=== PATIENT | female | born 1935 | race Caucasian/White ===

== ENCOUNTER 2016-11-15 20:37 | Inpatient (IN) | payer OTHER, MEDICAID ==
[2016-11-15] MEDS ORDERED: TYLENOL 325 MG TAB PO PRN (21:45)
[2016-11-15] MEDS ORDERED: ZOFRAN INJ 4 MG VIAL IVP PRN (21:45)
[2016-11-15] MEDS ORDERED: ULTRAM PO PRN (21:45)
[2016-11-15] MEDS ORDERED: ZOFRAN TAB 4 MG SL PRN (21:45)
[2016-11-15] MEDS ORDERED: MAALOX or MYLANTA PO PRN (21:45)
[2016-11-15] MEDS ORDERED: ROCEPHIN VIAL 1 GM 1 GM in NS 50 ML IV + SPIKE MINIBAG* 50 ML IV SCH (22:00)
[2016-11-15] MEDS: NS 1000 ML 1,000 ML IV SCH (23:05)
[2016-11-15] MEDS: ROCEPHIN VIAL 1 GM 1 GM in NS 50 ML IV + SPIKE MINIBAG* 50 ML IV SCH (23:06)
[2016-11-15 23:12] LABS: ALANINE AMINOTRANSFERASE 17 Units/L (12-78); ALBUMIN 3.4 g/dL (3.4-5.0); ALKALINE PHOSPHATASE 49 Units/L (46-116); ASPARTATE AMINO TRANSFERASE 23 Units/L (15-37); BLOOD UREA NITROGEN 15 mg/dL (7-18); CALCIUM 8.6 mg/dL (8.5-10.1); CARBON DIOXIDE 29.9 mmol/L (21-32); CHLORIDE 102 mmol/L (98-107); CREATININE 1.07 mg/dL (0.55-1.02); GLUCOSE 109 mg/dL (65-99); SODIUM 141 mmol/L (136-145); TOTAL PROTEIN 6.9 g/dL (6.4-8.2); eGFR BLACK RACES > 60 (>60); eGFR NON BLACK RACES 53 (>60)
[2016-11-15] MEDS ORDERED: BUTT CREAM (COMPOUND) TOP PRN (23:30)
[2016-11-16 00:07] LABS: BASOPHILS # (AUTO) 0.1 X10^3/uL (0.0-0.1); BASOPHILS % (AUTO) 0.4 % (0.2-1.0); EOSINOPHILS # (AUTO) 0.1 x10^3/uL (0.0-0.2); EOSINOPHILS % (AUTO) 0.6 % (0.9-2.9); HEMATOCRIT 30.9 % (36.0-47.0); HEMOGLOBIN 10.2 g/dL (12.0-16.0); LYMPHOCYTES # (AUTO) 0.6 X10^3/uL (1.3-2.9); LYMPHOCYTES % (AUTO) 4.6 % (21.0-51.0); MEAN CORPUSCULAR HEMOGLOBIN 39.9 pg (27.0-34.0); MEAN CORPUSCULAR HGB CONC 32.8 g/dL (33.0-35.0); MEAN CORPUSCULAR VOLUME 121.4 fL (80.0-100.0); MEAN PLATELET VOLUME 7.3 fL (7.4-11.0); MONOCYTES # (AUTO) 0.5 x10^3/uL (0.3-0.8); MONOCYTES % (AUTO) 4.3 % (0.0-13.0); NEUTROPHILS # (AUTO) 11.5 x10^3/uL (2.2-4.8); NEUTROPHILS % (AUTO) 90.1 % (42.0-75.0); PLATELET COUNT 241 X10^3/uL (150.0-450.0); RED BLOOD COUNT 2.55 X10^6/uL (3.5-5.4); RED CELL DISTRIBUTION WIDTH 21.3 % (11.6-16.5); WHITE BLOOD COUNT 12.8 X10^3/uL (3.6-10.0)
[2016-11-16 00:17] LABS: ANISOCYTOSIS 1+; BAND NEUTROPHILS % 4 % (0-10); HYPOCHROMASIA 3+; PLATELET MORPHOLOGY COMMENT NORMAL (NORMAL)
[2016-11-16] MEDS: NORCO 5/325 MG TAB PO PRN ×2 (05:24→15:23)
--- NOTE | 2016-11-16 07:15 | RAD ---
HISTORY: Fever, upper respiratory infection Study: Chest one view Comparison: None Findings: Heart size difficult to assess due to obscuration of the right heart border by elevation of the righ t hemidiaphragm. The visualized right lung is clear. The left lung is clear. No pleural effusions ar e identified. The bony thorax is unremarkable. There is calcification on the pleural surface of the right hemidiaphragm suggestive of possible prior asbestos exposure. IMPRESSION: Lungs clear Elevated right hemidiaphragm Calcifications on the pleural surface of the right hemidiaphragm suggestive of possible prior asbest os exposure Reported By:
[2016-11-16] MEDS: ROCEPHIN VIAL 1 GM 1 GM in NS 50 ML IV + SPIKE MINIBAG* 50 ML IV SCH (10:06)
[2016-11-16] MEDS: NS 1000 ML 1,000 ML IV SCH (14:16)
[2016-11-16] MEDS ORDERED: [UNRECOGNIZED DRUG - OTHER] PO PRN (14:40)
[2016-11-16] MEDS ORDERED: [UNRECOGNIZED DRUG - OTHER] PO PRN (14:40)
[2016-11-16] MEDS ORDERED: ZOFRAN TAB 4 MG PO PRN (14:51)
[2016-11-16] MEDS: MOBIC TAB 15 MG PO SCH (15:22)
[2016-11-16] MEDS: PRILOSEC PO SCH ×2 (15:22→20:55)
[2016-11-16] MEDS: FOLIC ACID TAB 1 MG PO SCH (15:22)
[2016-11-16] MEDS: CARAFATE PO SCH ×2 (15:22→20:54)
[2016-11-16] MEDS: PLAVIX PO SCH (15:23)
[2016-11-16] MEDS: ATIVAN TAB 0.5 MG PO SCH ×2 (15:23→20:54)
[2016-11-16] MEDS: CLARITIN PO SCH (15:23)
[2016-11-16 15:28] LABS: BILIRUBIN,URINE NEGATIVE (NEGATIVE); BLOOD/HEMOGLOBIN,URINE NEGATIVE (NEGATIVE); GLUCOSE, URINE NEGATIVE (NEGATIVE); KETONES,URINE NEGATIVE (NEGATIVE); LEUKOCYTE ESTERASE ,URINE NEGATIVE (NEGATIVE); NITRITES,URINE NEGATIVE (NEGATIVE); PROTEIN,URINE NEGATIVE (NEGATIVE); UROBILINOGEN,URINE NORMAL (NORMAL)
[2016-11-16 15:48] LABS: APPEARANCE,URINE CLEAR (CLEAR); BACTERIA,URINE TRACE /HPF (NEGATIVE); COLOR,URINE YELLOW (YELLOW); RBC,URINE 0-2 /HPF (NEGATIVE); SQUAMOUS EPITHELIAL CELL,UR FEW /HPF (NEGATIVE)
[2016-11-16 19:10] VITALS: BMI 33.5
[2016-11-16] MEDS: NEURONTIN CAP 400 MG PO SCH (20:54)
[2016-11-16] MEDS: SINGULAIR TAB 10 MG PO SCH (20:54)
[2016-11-16] MEDS: ZOCOR TAB 10 MG PO SCH (20:55)
[2016-11-16] MEDS: ULTRAM PO PRN (20:56)
--- NOTE | 2016-11-16 22:49 | DR.H&P ---
H&P - History & Physical for Day of: H&P Date: 11/15/16 - Chief Complaint Chief Complaint: Fever and weakness - Allergies Allergies/Adverse Reactions: Allergies Allergy/AdvReac Type Severity Reaction Status Date / Time Promethazine [From Phenergan] Allergy Verified 11/15/16 21:16 Lisinopril AdvReac Verified 11/15/16 21:16 - History of Present Illness History of Present Illness: The patient is a 81yo WF who developed a fever of 101F this afternoon. Patient states she had been feeling bad since Saturday. Denies productive Cough and has had minimal sinus congestion. Denies dysuria. Was recently hospitalized due to TIA like symptoms. - Past Medical History Past Medical History: Anemia, Anxiety, Arthritis, CVA, GERD, Hypertension Additional Medical History: Restless leg syndrome, PVD, DVT, Low back pain with DDD - Past Surgical History Surgical History: Cholecystectomy Additional Surgical History: EGD/Colonoscopy 2014 - Social History Does patient currently use any type of tobacco product: No Have you used tobacco products in the last 12 months: No Type of Tobacco Use: None Does any household member use tobacco: No Alcohol Use: None Drug Use: None - Medications Home Medications: Ciprofloxacin HCl [Cipro] 1 tab PO BID 11/16/16 [History Confirmed 11/16/16] Clopidogrel Bisulfate [Clopidogrel] 1 tab PO DAILY 11/16/16 [History Confirmed 11/16/16] Folic Acid [Folic Acid] 1 tab PO DAILY 11/16/16 [History Confirmed 11/16/16] Gabapentin [Gabapentin] 3 cap PO TID 11/16/16 [History Confirmed 11/16/16] Gabapentin [Gabapentin] 800 mg PO TID 11/16/16 [History Confirmed 11/16/16] Loratadine [Loratadine] 1 tab PO DAILY 11/16/16 [History Confirmed 11/16/16] Lorazepam [Lorazepam] 1 tab PO BID 11/16/16 [History Confirmed 11/16/16] Meloxicam [Meloxicam] 1 tab PO DAILY 11/16/16 [History Confirmed 11/16/16] Montelukast Sodium [SINGULAIR TAB 10 MG *] 1 tab PO HS 11/16/16 [History Confirmed 11/16/16] Omeprazole [Omeprazole] 1 cap PO BID 11/16/16 [History Confirmed 11/16/16] Ondansetron [Zofran Odt] 1 tab PO Q6H PRN 11/16/16 [History Confirmed 11/16/16] Simvastatin [Simvastatin] 1 tab PO HS 11/16/16 [History Confirmed 11/16/16] Sucralfate [Sucralfate] 1 tab PO BID 11/16/16 [History Confirmed 11/16/16] Tramadol-Acetaminophen [Tramadol Hydrochloride/AC 37.5-325 mg] 1 tab PO TID PRN 11/16/16 [History Confirmed 11/16/16] - Review of Systems Constitutional: Fever, Chills, Weakness, Malaise Eyes: No Symptoms Reported ENT: Nose Congestion Respiratory: No Symptoms Reported Cardiovascular: No Symptoms Reported Gastrointestinal: No Symptoms Reported Genitourinary: No Symptoms Reported Musculoskeletal: No Symptoms Reported Skin: No Symptoms Reported Neurological: Weakness - Physical Exam Vital Signs: Temperature 98.1 F Pulse Rate [Left Brachial] 63 Pulse Rate [Brachial] 57 Respiratory Rate 20 Blood Pressure [Left Arm] 140/65 O2 Sat by Pulse Oximetry 94 Oriented: Normal Eyes: Normal Ear: Normal Nose: Normal Throat: Normal Respiratory: Clear Throughout Cardiovascular: Normal : Normal Auscultation: Bowel Sounds: Normal Palpation: Normal Tenderness: Normal Skin: Normal Musculoskeletal: Back:Lumbar, Tender Psychiatric: Normal Mood Description: Calm Affect: Quiet Speech Pattern: Clear - Assessment/Plan (1) Fever Qualifiers: Fever type: F Encounter type: E Status: Acute Plan: Labs, CXR, Blood Culture, Rocephin (2) Generalized weakness Status: Acute Plan: Labs, IVFs (3) Upper respiratory infection, acute Status: Acute Plan: CXR, Rocephin
[2016-11-17] MEDS: NS 1000 ML 1,000 ML IV SCH (05:12)
[2016-11-17 06:20] LABS: BASOPHILS % (AUTO) 0.4 % (0.2-1.0); EOSINOPHILS # (AUTO) 0.2 x10^3/uL (0.0-0.2); EOSINOPHILS % (AUTO) 1.8 % (0.9-2.9); HEMATOCRIT 29.8 % (36.0-47.0); HEMOGLOBIN 10.1 g/dL (12.0-16.0); LYMPHOCYTES # (AUTO) 1.1 X10^3/uL (1.3-2.9); LYMPHOCYTES % (AUTO) 9.1 % (21.0-51.0); MEAN CORPUSCULAR HEMOGLOBIN 40.2 pg (27.0-34.0); MEAN CORPUSCULAR HGB CONC 33.8 g/dL (33.0-35.0); MEAN CORPUSCULAR VOLUME 119.1 fL (80.0-100.0); MEAN PLATELET VOLUME 7.8 fL (7.4-11.0); MONOCYTES # (AUTO) 0.7 x10^3/uL (0.3-0.8); MONOCYTES % (AUTO) 5.6 % (0.0-13.0); NEUTROPHILS # (AUTO) 10.3 x10^3/uL (2.2-4.8); NEUTROPHILS % (AUTO) 83.1 % (42.0-75.0); PLATELET COUNT 207 X10^3/uL (150.0-450.0); RED BLOOD COUNT 2.51 X10^6/uL (3.5-5.4); RED CELL DISTRIBUTION WIDTH 21.3 % (11.6-16.5); WHITE BLOOD COUNT 12.4 X10^3/uL (3.6-10.0)
[2016-11-17 06:31] LABS: BLOOD UREA NITROGEN 11 mg/dL (7-18); CARBON DIOXIDE 31.8 mmol/L (21-32); CHLORIDE 107 mmol/L (98-107); CREATININE 0.82 mg/dL (0.55-1.02); GLUCOSE 86 mg/dL (65-99); SODIUM 144 mmol/L (136-145); eGFR BLACK RACES > 60 (>60); eGFR NON BLACK RACES > 60 (>60)
[2016-11-17 07:19] LABS: ANISOCYTOSIS 1+; PLATELET MORPHOLOGY COMMENT NORMAL (NORMAL)
[2016-11-17] MEDS: CARAFATE PO SCH ×2 (09:21→20:26)
[2016-11-17] MEDS: ATIVAN TAB 0.5 MG PO SCH ×2 (09:21→20:26)
[2016-11-17] MEDS: PRILOSEC PO SCH ×2 (09:22→20:26)
[2016-11-17] MEDS: CLARITIN PO SCH (09:22)
[2016-11-17] MEDS: PLAVIX PO SCH (09:22)
[2016-11-17] MEDS: NEURONTIN CAP 400 MG PO SCH ×2 (09:22→20:27)
[2016-11-17] MEDS: ROCEPHIN VIAL 1 GM 1 GM in NS 50 ML IV + SPIKE MINIBAG* 50 ML IV SCH (09:22)
[2016-11-17] MEDS: FOLIC ACID TAB 1 MG PO SCH (09:22)
[2016-11-17] MEDS: MOBIC TAB 15 MG PO SCH (09:22)
[2016-11-17] MEDS: SINGULAIR TAB 10 MG PO SCH (20:26)
[2016-11-17] MEDS: ZOCOR TAB 10 MG PO SCH (20:27)
[2016-11-18] MEDS: NS 1000 ML 1,000 ML IV SCH ×2 (04:52→15:30)
[2016-11-18 06:48] LABS: BLOOD UREA NITROGEN 10 mg/dL (7-18); CALCIUM 8.1 mg/dL (8.5-10.1); CARBON DIOXIDE 31.3 mmol/L (21-32); CHLORIDE 109 mmol/L (98-107); CREATININE 0.86 mg/dL (0.55-1.02); GLUCOSE 88 mg/dL (65-99); SODIUM 145 mmol/L (136-145); eGFR BLACK RACES > 60 (>60); eGFR NON BLACK RACES > 60 (>60)
[2016-11-18 07:00] LABS: BASOPHILS % (AUTO) 0.5 % (0.2-1.0); EOSINOPHILS # (AUTO) 0.4 x10^3/uL (0.0-0.2); EOSINOPHILS % (AUTO) 4.9 % (0.9-2.9); HEMATOCRIT 30.9 % (36.0-47.0); HEMOGLOBIN 10.5 g/dL (12.0-16.0); LYMPHOCYTES # (AUTO) 1.1 X10^3/uL (1.3-2.9); LYMPHOCYTES % (AUTO) 14.8 % (21.0-51.0); MEAN CORPUSCULAR HEMOGLOBIN 39.9 pg (27.0-34.0); MEAN CORPUSCULAR HGB CONC 33.8 g/dL (33.0-35.0); MEAN CORPUSCULAR VOLUME 118.2 fL (80.0-100.0); MEAN PLATELET VOLUME 7.6 fL (7.4-11.0); MONOCYTES # (AUTO) 0.4 x10^3/uL (0.3-0.8); MONOCYTES % (AUTO) 5.9 % (0.0-13.0); NEUTROPHILS # (AUTO) 5.7 x10^3/uL (2.2-4.8); NEUTROPHILS % (AUTO) 73.9 % (42.0-75.0); PLATELET COUNT 206 X10^3/uL (150.0-450.0); RED BLOOD COUNT 2.62 X10^6/uL (3.5-5.4); RED CELL DISTRIBUTION WIDTH 21.3 % (11.6-16.5); WHITE BLOOD COUNT 7.7 X10^3/uL (3.6-10.0)
[2016-11-18 08:17] LABS: ANISOCYTOSIS 1+; PLATELET MORPHOLOGY COMMENT NORMAL (NORMAL)
[2016-11-18] MEDS: NEURONTIN CAP 400 MG PO SCH ×2 (09:47→20:36)
[2016-11-18] MEDS: ATIVAN TAB 0.5 MG PO SCH ×2 (09:47→20:36)
[2016-11-18] MEDS: CARAFATE PO SCH ×2 (09:47→20:36)
[2016-11-18] MEDS: PRILOSEC PO SCH ×2 (09:47→20:36)
[2016-11-18] MEDS: FOLIC ACID TAB 1 MG PO SCH (09:47)
[2016-11-18] MEDS: MOBIC TAB 15 MG PO SCH (09:47)
[2016-11-18] MEDS: PLAVIX PO SCH (09:47)
[2016-11-18] MEDS: CLARITIN PO SCH (09:54)
[2016-11-18] MEDS: ROCEPHIN VIAL 1 GM 1 GM in NS 50 ML IV + SPIKE MINIBAG* 50 ML IV SCH (15:37)
[2016-11-18] MEDS ORDERED: FLEXERIL TAB 10 MG PO PRN (17:13)
[2016-11-18] MEDS: LEVAQUIN TAB 500 MG PO SCH (17:51)
[2016-11-18] MEDS: SINGULAIR TAB 10 MG PO SCH (20:36)
[2016-11-18] MEDS: ZOCOR TAB 10 MG PO SCH (20:36)
[2016-11-18] MEDS: NORCO 5/325 MG TAB PO PRN (23:17)
[2016-11-19] MEDS: NS 1000 ML 1,000 ML IV SCH (03:39)
[2016-11-19 05:07] LABS: ALANINE AMINOTRANSFERASE 14 Units/L (12-78); ALBUMIN 2.6 g/dL (3.4-5.0); ALKALINE PHOSPHATASE 38 Units/L (46-116); ASPARTATE AMINO TRANSFERASE 16 Units/L (15-37); BLOOD UREA NITROGEN 11 mg/dL (7-18); CALCIUM 8.2 mg/dL (8.5-10.1); CARBON DIOXIDE 32.2 mmol/L (21-32); CHLORIDE 107 mmol/L (98-107); COR CA(FOR HYPOALB) 9.3 mg/dL (8.5-10.1); CREATININE 0.93 mg/dL (0.55-1.02); GLUCOSE 83 mg/dL (65-99); SODIUM 145 mmol/L (136-145); TOTAL PROTEIN 6.1 g/dL (6.4-8.2); eGFR BLACK RACES > 60 (>60); eGFR NON BLACK RACES > 60 (>60)
[2016-11-19 05:11] LABS: BASOPHILS # (AUTO) 0.1 X10^3/uL (0.0-0.1); BASOPHILS % (AUTO) 0.9 % (0.2-1.0); EOSINOPHILS # (AUTO) 0.3 x10^3/uL (0.0-0.2); HEMATOCRIT 29.4 % (36.0-47.0); LYMPHOCYTES # (AUTO) 1.4 X10^3/uL (1.3-2.9); LYMPHOCYTES % (AUTO) 18.6 % (21.0-51.0); MEAN CORPUSCULAR HEMOGLOBIN 39.5 pg (27.0-34.0); MEAN CORPUSCULAR HGB CONC 33.9 g/dL (33.0-35.0); MEAN CORPUSCULAR VOLUME 116.6 fL (80.0-100.0); MEAN PLATELET VOLUME 7.9 fL (7.4-11.0); MONOCYTES # (AUTO) 0.4 x10^3/uL (0.3-0.8); MONOCYTES % (AUTO) 5.6 % (0.0-13.0); NEUTROPHILS # (AUTO) 5.4 x10^3/uL (2.2-4.8); NEUTROPHILS % (AUTO) 70.9 % (42.0-75.0); PLATELET COUNT 225 X10^3/uL (150.0-450.0); RED BLOOD COUNT 2.52 X10^6/uL (3.5-5.4); WHITE BLOOD COUNT 7.6 X10^3/uL (3.6-10.0)
[2016-11-19 05:53] LABS: ANISOCYTOSIS 1+; PLATELET MORPHOLOGY COMMENT NORMAL (NORMAL)
[2016-11-19] MEDS: CLARITIN PO SCH (09:27)
[2016-11-19] MEDS: LEVAQUIN TAB 500 MG PO SCH (09:27)
[2016-11-19] MEDS: ATIVAN TAB 0.5 MG PO SCH ×2 (09:27→20:52)
[2016-11-19] MEDS: MOBIC TAB 15 MG PO SCH (09:27)
[2016-11-19] MEDS: PRILOSEC PO SCH ×2 (09:27→20:53)
[2016-11-19] MEDS: FOLIC ACID TAB 1 MG PO SCH (09:27)
[2016-11-19] MEDS: CARAFATE PO SCH ×2 (09:28→20:53)
[2016-11-19] MEDS: ULTRAM PO PRN (09:28)
[2016-11-19] MEDS: PLAVIX PO SCH (09:28)
[2016-11-19] MEDS: NEURONTIN CAP 400 MG PO SCH ×2 (09:28→20:52)
[2016-11-19] MEDS: ZOCOR TAB 10 MG PO SCH (20:53)
[2016-11-19] MEDS: SINGULAIR TAB 10 MG PO SCH (20:53)
[2016-11-19] MEDS ORDERED: NEURONTIN CAP 400 MG PO SCH (21:00)
[2016-11-20 05:22] LABS: BASOPHILS # (AUTO) 0.1 X10^3/uL (0.0-0.1); BASOPHILS % (AUTO) 0.9 % (0.2-1.0); EOSINOPHILS # (AUTO) 0.3 x10^3/uL (0.0-0.2); EOSINOPHILS % (AUTO) 4.8 % (0.9-2.9); HEMATOCRIT 30.9 % (36.0-47.0); HEMOGLOBIN 10.4 g/dL (12.0-16.0); LYMPHOCYTES # (AUTO) 1.7 X10^3/uL (1.3-2.9); LYMPHOCYTES % (AUTO) 24.1 % (21.0-51.0); MEAN CORPUSCULAR HEMOGLOBIN 38.8 pg (27.0-34.0); MEAN CORPUSCULAR HGB CONC 33.6 g/dL (33.0-35.0); MEAN CORPUSCULAR VOLUME 115.6 fL (80.0-100.0); MEAN PLATELET VOLUME 7.9 fL (7.4-11.0); MONOCYTES # (AUTO) 0.4 x10^3/uL (0.3-0.8); MONOCYTES % (AUTO) 5.6 % (0.0-13.0); NEUTROPHILS # (AUTO) 4.6 x10^3/uL (2.2-4.8); NEUTROPHILS % (AUTO) 64.6 % (42.0-75.0); PLATELET COUNT 230 X10^3/uL (150.0-450.0); RED BLOOD COUNT 2.67 X10^6/uL (3.5-5.4); RED CELL DISTRIBUTION WIDTH 22.4 % (11.6-16.5); WHITE BLOOD COUNT 7.1 X10^3/uL (3.6-10.0)
[2016-11-20 05:33] LABS: ALANINE AMINOTRANSFERASE 13 Units/L (12-78); ALBUMIN 2.7 g/dL (3.4-5.0); ALKALINE PHOSPHATASE 40 Units/L (46-116); ASPARTATE AMINO TRANSFERASE 21 Units/L (15-37); BLOOD UREA NITROGEN 14 mg/dL (7-18); CALCIUM 8.5 mg/dL (8.5-10.1); CARBON DIOXIDE 28.5 mmol/L (21-32); CHLORIDE 108 mmol/L (98-107); COR CA(FOR HYPOALB) 9.5 mg/dL (8.5-10.1); GLUCOSE 76 mg/dL (65-99); SODIUM 144 mmol/L (136-145); TOTAL PROTEIN 6.3 g/dL (6.4-8.2); eGFR BLACK RACES > 60 (>60); eGFR NON BLACK RACES > 60 (>60)
[2016-11-20 06:01] LABS: ANISOCYTOSIS 2+; PLATELET MORPHOLOGY COMMENT NORMAL (NORMAL)
--- NOTE | 2016-11-20 07:06 | RAD ---
HISTORY: Fever, URI Study: Chest one view Comparison: November 15, 2016 Findings: Patient is rotated to the right. Heart size difficult to assess due to obscuration of the right hear t border by and elevated right hemidiaphragm which is chronic. The visualize right lung is clear as is the left lung. No pleural effusions are identified. The bony thorax is unremarkable. IMPRESSION: Lungs clear Chronically elevated right hemidiaphragm Reported By:
[2016-11-20] MEDS: CLARITIN PO SCH (09:48)
[2016-11-20] MEDS: PLAVIX PO SCH (09:48)
[2016-11-20] MEDS: CARAFATE PO SCH ×2 (09:48→21:05)
[2016-11-20] MEDS: NEURONTIN CAP 400 MG PO SCH ×2 (09:48→21:05)
[2016-11-20] MEDS: FOLIC ACID TAB 1 MG PO SCH (09:48)
[2016-11-20] MEDS: MOBIC TAB 15 MG PO SCH (09:48)
[2016-11-20] MEDS: PRILOSEC PO SCH ×2 (09:48→21:05)
[2016-11-20] MEDS: LEVAQUIN TAB 500 MG PO SCH (09:48)
[2016-11-20] MEDS: ATIVAN TAB 0.5 MG PO SCH ×2 (09:48→21:05)
[2016-11-20] MEDS: XOPENEX 1.25 MG/3 ML NEB SCH ×2 (16:24→20:23)
--- NOTE | 2016-11-20 17:22 | PCM.PROG ---
Progress Note - Progress Note for Day of Date: 11/19/16 - Subjective Subjective: CONTINUED MILD GENERALIZED WEAKNESS, CHEST CONGESTION WITH MILDLY PRODUCTIVE COUGH. - Past Medical Family Social History Past Med/Fam/Surg Hx: No changes since H&P Allergies: Allergies Promethazine [From Phenergan] Allergy (Verified 11/15/16 21:16) Lisinopril Adverse Reaction (Verified 11/15/16 21:16) - Review of Systems ROS: No change since H&P - Vital Signs and I&O's Vital Signs: Temperature 98.4 F Pulse Rate [Right Brachial] 85 Pulse Rate [Left Brachial] 100 Pulse Rate [Brachial] 57 Pulse Rate 102 Respiratory Rate 18 Blood Pressure [Right Arm] 110/60 Blood Pressure [Left Arm] 118/68 O2 Sat by Pulse Oximetry 94 Intake and Output: Intake & Output 11/18/16 11/19/16 11/20/16 11/21/16 11:59 11:59 11:59 11:59 Intake Total 8777 159 4587 600 Output Total 600 Balance 0590 442 2202 600 - Physical Exam Oriented: Normal Eyes: Normal Ear: Normal Nose: Normal Throat: Normal Respiratory: Rhonchi (CENTRAL RHONCHI) Cardiovascular: Normal : Normal Auscultation: Bowel Sounds: Normal Tenderness: Normal Skin: Normal Musculoskeletal: Back:Lumbar, Tender Psychiatric: Normal Mood Description: Calm Affect: Quiet Speech Pattern: Clear, Appropriate - Laboratory and Diagnostics Result Diagrams: 11/20/16 03:20 11/20/16 03:20 Labs: 11/15/16 22:25 Blood Blood Culture - Final 11/15/16 23:50 Blood Blood Culture - Final Laboratory WBC 7.1 X10^3/uL (3.6-10.0) 11/20/16 03:20 RBC 2.67 X10^6/uL (3.5-5.4) L 11/20/16 03:20 Hgb 10.4 g/dL (12.0-16.0) L 11/20/16 03:20 Hct 30.9 % (36.0-47.0) L 11/20/16 03:20 MCV 115.6 fL (80.0-100.0) H 11/20/16 03:20 MCH 38.8 pg (27.0-34.0) H 11/20/16 03:20 MCHC 33.6 g/dL (33.0-35.0) 11/20/16 03:20 RDW 22.4 % (11.6-16.5) H 11/20/16 03:20 Plt Count 230 X10^3/uL (150.0-450.0) 11/20/16 03:20 Plt Count Comment Adequate (ADEQUATE) 11/20/16 03:20 MPV 7.9 fL (7.4-11.0) 11/20/16 03:20 Neut % 64.6 % (42.0-75.0) 11/20/16 03:20 Lymph % 24.1 % (21.0-51.0) 11/20/16 03:20 [place] % 5.6 % (0.0-13.0) 11/20/16 03:20 Eos % 4.8 % (0.9-2.9) H 11/20/16 03:20 Baso % 0.9 % (0.2-1.0) 11/20/16 03:20 Neut # 4.6 x10^3/uL (2.2-4.8) 11/20/16 03:20 Lymph # 1.7 X10^3/uL (1.3-2.9) 11/20/16 03:20 [place] # 0.4 x10^3/uL (0.3-0.8) 11/20/16 03:20 Eos # 0.3 x10^3/uL (0.0-0.2) H 11/20/16 03:20 Baso # 0.1 X10^3/uL (0.0-0.1) 11/20/16 03:20 Absolute Nucleated RBC 0.0 /100WBC 11/20/16 03:20 Total Counted 100 11/15/16 22:25 Neutrophils % (Manual) 86 % (39-76) H 11/15/16 22:25 Band Neutrophils % 4 % (0-10) 11/15/16 22:25 Lymphocytes % (Manual) 6 % (13-43) L 11/15/16 22:25 Monocytes % (Manual) 4 % (4-9) 11/15/16 22:25 Plt Morphology Comment Normal (NORMAL) 11/20/16 03:20 RBC Morphology Abnormal (NORMAL) A 11/20/16 03:20 Hypochromasia 3+ A 11/15/16 22:25 Anisocytosis 2+ A 11/20/16 03:20 Macrocytosis 3+ A 11/20/16 03:20 Sodium 144 mmol/L (136-145) 11/20/16 03:20 Corrected Sodium TNP 11/20/16 03:20 Potassium 4.0 mmol/L (3.5-5.1) 11/20/16 03:20 Chloride 108 mmol/L (98-107) H 11/20/16 03:20 Carbon Dioxide 28.5 mmol/L (21-32) 11/20/16 03:20 BUN 14 mg/dL (7-18) 11/20/16 03:20 Creatinine 0.80 mg/dL (0.55-1.02) 11/20/16 03:20 Est GFR (MDRD) Af Amer > 60 (>60) 11/20/16 03:20 Est GFR (MDRD) Non-Af > 60 (>60) 11/20/16 03:20 Glucose 76 mg/dL (65-99) 11/20/16 03:20 Calcium 8.5 mg/dL (8.5-10.1) 11/20/16 03:20 Corrected Calcium 9.5 mg/dL (8.5-10.1) 11/20/16 03:20 Total Bilirubin 0.40 mg/dL (0.2-1.0) 11/20/16 03:20 AST 21 Units/L (15-37) 11/20/16 03:20 ALT 13 Units/L (12-78) 11/20/16 03:20 Alkaline Phosphatase 40 Units/L (46-116) L 11/20/16 03:20 Total Protein 6.3 g/dL (6.4-8.2) L 11/20/16 03:20 Albumin 2.7 g/dL (3.4-5.0) L 11/20/16 03:20 Globulin 3.6 g/dL (2.5-4.5) 11/20/16 03:20 Albumin/Globulin Ratio 0.8 Ratio (1.1-2.1) L 11/20/16 03:20 Specimen Type Clean catch urine 11/16/16 15:05 Urine Color Yellow (YELLOW) 11/16/16 15:05 Urine Appearance Clear (CLEAR) 11/16/16 15:05 Urine pH 7.0 (5.0 - 8.0) 11/16/16 15:05 Ur Specific [place] 1.010 (1.000-1.030) 11/16/16 15:05 Urine Protein Negative (NEGATIVE) 11/16/16 15:05 Urine Glucose (UA) Negative (NEGATIVE) 11/16/16 15:05 Urine Ketones Negative (NEGATIVE) 11/16/16 15:05 Urine Occult Blood Negative (NEGATIVE) 11/16/16 15:05 Urine Nitrite Negative (NEGATIVE) 11/16/16 15:05 Urine Bilirubin Negative (NEGATIVE) 11/16/16 15:05 Urine Urobilinogen Normal (NORMAL) 11/16/16 15:05 Ur Leukocyte Esterase Negative (NEGATIVE) 11/16/16 15:05 Urine RBC 0-2 /HPF (NEGATIVE) 11/16/16 15:05 Urine WBC 0-2 /HPF (NEGATIVE) 11/16/16 15:05 Ur Squamous Epith Cells Few /HPF (NEGATIVE) 11/16/16 15:05 Urine Bacteria Trace /HPF (NEGATIVE) 11/16/16 15:05 Ur Culture Indicated? No/not indicated 11/16/16 15:05 - Plan (1) Acute bronchitis Status: Acute Qualifiers: Bronchitis organism: B Plan: CONTINUE IV ATBX, RESP CONSULT. O2, REST, IV HYDRATION, REPEAT AM LABS (2) Generalized weakness Status: Acute Plan: Labs, IVFs (3) Hypertension Status: Acute Qualifiers: Hypertension type: H Plan: MONITOR (4) GERD (gastroesophageal reflux disease) Status: Acute Qualifiers: Esophagitis presence: E Plan: RESUME HOME MEDS, MONITOR
--- NOTE | 2016-11-20 17:23 | PCM.PROG ---
Progress Note - Progress Note for Day of Date: 11/20/16 - Subjective Subjective: CONTINUED MILD GENERALIZED WEAKNESS, CHEST CONGESTION IMPROVING. WITH MILDLY PRODUCTIVE COUGH. CASE MANAGEMENT CONSULTED FOR PLACEMENT AT [facility] - Past Medical Family Social History Past Med/Fam/Surg Hx: No changes since H&P Allergies: Allergies Promethazine [From Phenergan] Allergy (Verified 11/15/16 21:16) Lisinopril Adverse Reaction (Verified 11/15/16 21:16) - Review of Systems ROS: No change since H&P - Vital Signs and I&O's Vital Signs: Temperature 98.4 F Pulse Rate [Right Brachial] 85 Pulse Rate [Left Brachial] 100 Pulse Rate [Brachial] 57 Pulse Rate 102 Respiratory Rate 18 Blood Pressure [Right Arm] 110/60 Blood Pressure [Left Arm] 118/68 O2 Sat by Pulse Oximetry 94 Intake and Output: Intake & Output 11/18/16 11/19/16 11/20/16 11/21/16 11:59 11:59 11:59 11:59 Intake Total 9041 783 3302 600 Output Total 600 Balance 0189 495 9314 600 - Physical Exam Oriented: Normal Eyes: Normal Ear: Normal Nose: Normal Throat: Normal Respiratory: Rhonchi (CENTRAL RHONCHI) Cardiovascular: Normal : Normal Auscultation: Bowel Sounds: Normal Tenderness: Normal Skin: Normal Musculoskeletal: Back:Lumbar, Tender Psychiatric: Normal Mood Description: Calm Affect: Quiet Speech Pattern: Clear, Appropriate - Laboratory and Diagnostics Result Diagrams: 11/20/16 03:20 11/20/16 03:20 Labs: 11/15/16 22:25 Blood Blood Culture - Final 11/15/16 23:50 Blood Blood Culture - Final Laboratory WBC 7.1 X10^3/uL (3.6-10.0) 11/20/16 03:20 RBC 2.67 X10^6/uL (3.5-5.4) L 11/20/16 03:20 Hgb 10.4 g/dL (12.0-16.0) L 11/20/16 03:20 Hct 30.9 % (36.0-47.0) L 11/20/16 03:20 MCV 115.6 fL (80.0-100.0) H 11/20/16 03:20 MCH 38.8 pg (27.0-34.0) H 11/20/16 03:20 MCHC 33.6 g/dL (33.0-35.0) 11/20/16 03:20 RDW 22.4 % (11.6-16.5) H 11/20/16 03:20 Plt Count 230 X10^3/uL (150.0-450.0) 11/20/16 03:20 Plt Count Comment Adequate (ADEQUATE) 11/20/16 03:20 MPV 7.9 fL (7.4-11.0) 11/20/16 03:20 Neut % 64.6 % (42.0-75.0) 11/20/16 03:20 Lymph % 24.1 % (21.0-51.0) 11/20/16 03:20 [place] % 5.6 % (0.0-13.0) 11/20/16 03:20 Eos % 4.8 % (0.9-2.9) H 11/20/16 03:20 Baso % 0.9 % (0.2-1.0) 11/20/16 03:20 Neut # 4.6 x10^3/uL (2.2-4.8) 11/20/16 03:20 Lymph # 1.7 X10^3/uL (1.3-2.9) 11/20/16 03:20 [place] # 0.4 x10^3/uL (0.3-0.8) 11/20/16 03:20 Eos # 0.3 x10^3/uL (0.0-0.2) H 11/20/16 03:20 Baso # 0.1 X10^3/uL (0.0-0.1) 11/20/16 03:20 Absolute Nucleated RBC 0.0 /100WBC 11/20/16 03:20 Total Counted 100 11/15/16 22:25 Neutrophils % (Manual) 86 % (39-76) H 11/15/16 22:25 Band Neutrophils % 4 % (0-10) 11/15/16 22:25 Lymphocytes % (Manual) 6 % (13-43) L 11/15/16 22:25 Monocytes % (Manual) 4 % (4-9) 11/15/16 22:25 Plt Morphology Comment Normal (NORMAL) 11/20/16 03:20 RBC Morphology Abnormal (NORMAL) A 11/20/16 03:20 Hypochromasia 3+ A 11/15/16 22:25 Anisocytosis 2+ A 11/20/16 03:20 Macrocytosis 3+ A 11/20/16 03:20 Sodium 144 mmol/L (136-145) 11/20/16 03:20 Corrected Sodium TNP 11/20/16 03:20 Potassium 4.0 mmol/L (3.5-5.1) 11/20/16 03:20 Chloride 108 mmol/L (98-107) H 11/20/16 03:20 Carbon Dioxide 28.5 mmol/L (21-32) 11/20/16 03:20 BUN 14 mg/dL (7-18) 11/20/16 03:20 Creatinine 0.80 mg/dL (0.55-1.02) 11/20/16 03:20 Est GFR (MDRD) Af Amer > 60 (>60) 11/20/16 03:20 Est GFR (MDRD) Non-Af > 60 (>60) 11/20/16 03:20 Glucose 76 mg/dL (65-99) 11/20/16 03:20 Calcium 8.5 mg/dL (8.5-10.1) 11/20/16 03:20 Corrected Calcium 9.5 mg/dL (8.5-10.1) 11/20/16 03:20 Total Bilirubin 0.40 mg/dL (0.2-1.0) 11/20/16 03:20 AST 21 Units/L (15-37) 11/20/16 03:20 ALT 13 Units/L (12-78) 11/20/16 03:20 Alkaline Phosphatase 40 Units/L (46-116) L 11/20/16 03:20 Total Protein 6.3 g/dL (6.4-8.2) L 11/20/16 03:20 Albumin 2.7 g/dL (3.4-5.0) L 11/20/16 03:20 Globulin 3.6 g/dL (2.5-4.5) 11/20/16 03:20 Albumin/Globulin Ratio 0.8 Ratio (1.1-2.1) L 11/20/16 03:20 Specimen Type Clean catch urine 11/16/16 15:05 Urine Color Yellow (YELLOW) 11/16/16 15:05 Urine Appearance Clear (CLEAR) 11/16/16 15:05 Urine pH 7.0 (5.0 - 8.0) 11/16/16 15:05 Ur Specific [place] 1.010 (1.000-1.030) 11/16/16 15:05 Urine Protein Negative (NEGATIVE) 11/16/16 15:05 Urine Glucose (UA) Negative (NEGATIVE) 11/16/16 15:05 Urine Ketones Negative (NEGATIVE) 11/16/16 15:05 Urine Occult Blood Negative (NEGATIVE) 11/16/16 15:05 Urine Nitrite Negative (NEGATIVE) 11/16/16 15:05 Urine Bilirubin Negative (NEGATIVE) 11/16/16 15:05 Urine Urobilinogen Normal (NORMAL) 11/16/16 15:05 Ur Leukocyte Esterase Negative (NEGATIVE) 11/16/16 15:05 Urine RBC 0-2 /HPF (NEGATIVE) 11/16/16 15:05 Urine WBC 0-2 /HPF (NEGATIVE) 11/16/16 15:05 Ur Squamous Epith Cells Few /HPF (NEGATIVE) 11/16/16 15:05 Urine Bacteria Trace /HPF (NEGATIVE) 11/16/16 15:05 Ur Culture Indicated? No/not indicated 11/16/16 15:05 - Plan (1) Acute bronchitis Status: Acute Qualifiers: Bronchitis organism: B Plan: CONTINUE IV ATBX, RESP CONSULT. O2, REST, IV HYDRATION, REPEAT AM LABS (2) Generalized weakness Status: Acute Plan: Labs, IVFs (3) Hypertension Status: Acute Qualifiers: Hypertension type: H Plan: MONITOR (4) GERD (gastroesophageal reflux disease) Status: Acute Qualifiers: Esophagitis presence: E Plan: RESUME HOME MEDS, MONITOR
[2016-11-20] MEDS: SINGULAIR TAB 10 MG PO SCH (21:05)
[2016-11-20] MEDS: ZOCOR TAB 10 MG PO SCH (21:05)
[2016-11-20] MEDS: ULTRAM PO PRN (21:19)
[2016-11-21] MEDS: RESTORIL CAP 15 MG PO PRN ×2 (01:58→20:05)
[2016-11-21 03:55] LABS: BASOPHILS # (AUTO) 0.1 X10^3/uL (0.0-0.1); BASOPHILS % (AUTO) 1.2 % (0.2-1.0); EOSINOPHILS # (AUTO) 0.3 x10^3/uL (0.0-0.2); EOSINOPHILS % (AUTO) 3.7 % (0.9-2.9); HEMATOCRIT 27.6 % (36.0-47.0); HEMOGLOBIN 9.3 g/dL (12.0-16.0); LYMPHOCYTES # (AUTO) 1.9 X10^3/uL (1.3-2.9); MEAN CORPUSCULAR HEMOGLOBIN 38.8 pg (27.0-34.0); MEAN CORPUSCULAR HGB CONC 33.6 g/dL (33.0-35.0); MEAN CORPUSCULAR VOLUME 115.6 fL (80.0-100.0); MEAN PLATELET VOLUME 7.5 fL (7.4-11.0); MONOCYTES # (AUTO) 0.4 x10^3/uL (0.3-0.8); MONOCYTES % (AUTO) 6.2 % (0.0-13.0); NEUTROPHILS # (AUTO) 4.3 x10^3/uL (2.2-4.8); NEUTROPHILS % (AUTO) 61.9 % (42.0-75.0); PLATELET COUNT 215 X10^3/uL (150.0-450.0); RED BLOOD COUNT 2.39 X10^6/uL (3.5-5.4); RED CELL DISTRIBUTION WIDTH 22.4 % (11.6-16.5)
[2016-11-21 03:57] LABS: ALANINE AMINOTRANSFERASE 10 Units/L (12-78); ALBUMIN 2.6 g/dL (3.4-5.0); ALKALINE PHOSPHATASE 36 Units/L (46-116); ASPARTATE AMINO TRANSFERASE 15 Units/L (15-37); BLOOD UREA NITROGEN 16 mg/dL (7-18); CARBON DIOXIDE 29.9 mmol/L (21-32); CHLORIDE 107 mmol/L (98-107); COR CA(FOR HYPOALB) 9.1 mg/dL (8.5-10.1); CREATININE 0.88 mg/dL (0.55-1.02); GLUCOSE 92 mg/dL (65-99); SODIUM 144 mmol/L (136-145); TOTAL PROTEIN 5.8 g/dL (6.4-8.2); eGFR BLACK RACES > 60 (>60); eGFR NON BLACK RACES > 60 (>60)
[2016-11-21 04:03] LABS: ANISOCYTOSIS 2+; PLATELET MORPHOLOGY COMMENT NORMAL (NORMAL)
--- NOTE | 2016-11-21 06:14 | RAD ---
HISTORY: Cough, fever Study: chest one view Comparison: November 20, 2016 Findings: The heart is enlarged. No congestive heart failure is noted. No acute alveolar infiltrates or pleura l effusions are identified. The bony thorax is unremarkable. The right hemidiaphragm is chronically elevated. The bony thorax is unremarkable. IMPRESSION: Cardiomegaly without congestive heart failure No infiltrates Chronically elevated right hemidiaphragm Reported By:
[2016-11-21] MEDS: FOLIC ACID TAB 1 MG PO SCH (08:47)
[2016-11-21] MEDS: NEURONTIN CAP 400 MG PO SCH ×2 (08:47→20:05)
[2016-11-21] MEDS: MOBIC TAB 15 MG PO SCH (08:47)
[2016-11-21] MEDS: CLARITIN PO SCH (08:47)
[2016-11-21] MEDS: LEVAQUIN TAB 500 MG PO SCH (08:48)
[2016-11-21] MEDS: PLAVIX PO SCH (08:48)
[2016-11-21] MEDS: PRILOSEC PO SCH ×2 (08:48→20:06)
[2016-11-21] MEDS: ATIVAN TAB 0.5 MG PO SCH ×2 (08:48→20:06)
[2016-11-21] MEDS: XOPENEX 1.25 MG/3 ML NEB SCH ×4 (08:49→20:03)
[2016-11-21] MEDS: CARAFATE PO SCH ×2 (08:49→20:05)
[2016-11-21 12:47] LABS: IRON 47 ug/dL (50-175); TRANSFERRIN 130 mg/dL (202-364)
--- NOTE | 2016-11-21 18:32 | PCM.PROG ---
Progress Note - Subjective Subjective: CONTINUED MILD GENERALIZED WEAKNESS, CHEST CONGESTION IMPROVING, DECREASE HGB WITH HYDRATION, WILL CHECK ANEMIA PANEL TODAY. CASE MANAGEMENT CONSULTED FOR PLACEMENT AT [facility]AB [facility] - Past Medical Family Social History Past Med/Fam/Surg Hx: No changes since H&P Allergies: Allergies Promethazine [From Phenergan] Allergy (Verified 11/15/16 21:16) Lisinopril Adverse Reaction (Verified 11/15/16 21:16) - Review of Systems ROS: No change since H&P - Vital Signs and I&O's Vital Signs: Temperature 97.6 F Pulse Rate [Right Brachial] 63 Pulse Rate [Left Brachial] 100 Pulse Rate [Brachial] 57 Pulse Rate 65 Respiratory Rate 18 Blood Pressure [Right Arm] 112/56 Blood Pressure [Left Arm] 118/68 O2 Sat by Pulse Oximetry 95 Intake and Output: Intake & Output 11/19/16 11/20/16 11/21/16 11/22/16 11:59 11:59 11:59 11:59 Intake Total 780 1620 1400 720 Output Total 600 Balance 780 1020 1400 720 - Physical Exam Oriented: Normal Eyes: Normal Ear: Normal Nose: Normal Throat: Normal Respiratory: Rhonchi (CENTRAL RHONCHI) Cardiovascular: Normal : Normal Auscultation: Bowel Sounds: Normal Tenderness: Normal Skin: Normal Musculoskeletal: Back:Lumbar, Tender Psychiatric: Normal Mood Description: Calm Affect: Quiet Speech Pattern: Clear, Appropriate - Laboratory and Diagnostics Result Diagrams: 11/21/16 03:20 11/21/16 03:20 Labs: 11/15/16 22:25 Blood Blood Culture - Final 11/15/16 23:50 Blood Blood Culture - Final Laboratory WBC 7.0 X10^3/uL (3.6-10.0) 11/21/16 03:20 RBC 2.39 X10^6/uL (3.5-5.4) L 11/21/16 03:20 Hgb 9.3 g/dL (12.0-16.0) L 11/21/16 03:20 Hct 27.6 % (36.0-47.0) L 11/21/16 03:20 MCV 115.6 fL (80.0-100.0) H 11/21/16 03:20 MCH 38.8 pg (27.0-34.0) H 11/21/16 03:20 MCHC 33.6 g/dL (33.0-35.0) 11/21/16 03:20 RDW 22.4 % (11.6-16.5) H 11/21/16 03:20 Plt Count 215 X10^3/uL (150.0-450.0) 11/21/16 03:20 Plt Count Comment Adequate (ADEQUATE) 11/21/16 03:20 MPV 7.5 fL (7.4-11.0) 11/21/16 03:20 Neut % 61.9 % (42.0-75.0) 11/21/16 03:20 Lymph % 27.0 % (21.0-51.0) 11/21/16 03:20 [place] % 6.2 % (0.0-13.0) 11/21/16 03:20 Eos % 3.7 % (0.9-2.9) H 11/21/16 03:20 Baso % 1.2 % (0.2-1.0) H 11/21/16 03:20 Neut # 4.3 x10^3/uL (2.2-4.8) 11/21/16 03:20 Lymph # 1.9 X10^3/uL (1.3-2.9) 11/21/16 03:20 [place] # 0.4 x10^3/uL (0.3-0.8) 11/21/16 03:20 Eos # 0.3 x10^3/uL (0.0-0.2) H 11/21/16 03:20 Baso # 0.1 X10^3/uL (0.0-0.1) 11/21/16 03:20 Absolute Nucleated RBC 0.0 /100WBC 11/21/16 03:20 Total Counted 100 11/15/16 22:25 Neutrophils % (Manual) 86 % (39-76) H 11/15/16 22:25 Band Neutrophils % 4 % (0-10) 11/15/16 22:25 Lymphocytes % (Manual) 6 % (13-43) L 11/15/16 22:25 Monocytes % (Manual) 4 % (4-9) 11/15/16 22:25 Plt Morphology Comment Normal (NORMAL) 11/21/16 03:20 RBC Morphology Abnormal (NORMAL) A 11/21/16 03:20 Hypochromasia 3+ A 11/15/16 22:25 Anisocytosis 2+ A 11/21/16 03:20 Macrocytosis 3+ A 11/21/16 03:20 Sodium 144 mmol/L (136-145) 11/21/16 03:20 Corrected Sodium TNP 11/21/16 03:20 Potassium 3.6 mmol/L (3.5-5.1) 11/21/16 03:20 Chloride 107 mmol/L (98-107) 11/21/16 03:20 Carbon Dioxide 29.9 mmol/L (21-32) 11/21/16 03:20 BUN 16 mg/dL (7-18) 11/21/16 03:20 Creatinine 0.88 mg/dL (0.55-1.02) 11/21/16 03:20 Est GFR (MDRD) Af Amer > 60 (>60) 11/21/16 03:20 Est GFR (MDRD) Non-Af > 60 (>60) 11/21/16 03:20 Glucose 92 mg/dL (65-99) 11/21/16 03:20 Calcium 8.0 mg/dL (8.5-10.1) L 11/21/16 03:20 Corrected Calcium 9.1 mg/dL (8.5-10.1) 11/21/16 03:20 Iron 47 ug/dL (50-175) L 11/21/16 03:20 Transferrin 130 mg/dL (202-364) L 11/21/16 03:20 Ferritin 210 ng/mL (8-252) 11/21/16 03:20 Total Bilirubin 0.20 mg/dL (0.2-1.0) 11/21/16 03:20 AST 15 Units/L (15-37) 11/21/16 03:20 ALT 10 Units/L (12-78) L 11/21/16 03:20 Alkaline Phosphatase 36 Units/L (46-116) L 11/21/16 03:20 Total Protein 5.8 g/dL (6.4-8.2) L 11/21/16 03:20 Albumin 2.6 g/dL (3.4-5.0) L 11/21/16 03:20 Globulin 3.2 g/dL (2.5-4.5) 11/21/16 03:20 Albumin/Globulin Ratio 0.8 Ratio (1.1-2.1) L 11/21/16 03:20 Vitamin B12 469 pg/mL (193-986) 11/21/16 03:20 Folate > 20.0 ng/mL (>8.6) 11/21/16 03:20 Specimen Type Clean catch urine 11/16/16 15:05 Urine Color Yellow (YELLOW) 11/16/16 15:05 Urine Appearance Clear (CLEAR) 11/16/16 15:05 Urine pH 7.0 (5.0 - 8.0) 11/16/16 15:05 Ur Specific [place] 1.010 (1.000-1.030) 11/16/16 15:05 Urine Protein Negative (NEGATIVE) 11/16/16 15:05 Urine Glucose (UA) Negative (NEGATIVE) 11/16/16 15:05 Urine Ketones Negative (NEGATIVE) 11/16/16 15:05 Urine Occult Blood Negative (NEGATIVE) 11/16/16 15:05 Urine Nitrite Negative (NEGATIVE) 11/16/16 15:05 Urine Bilirubin Negative (NEGATIVE) 11/16/16 15:05 Urine Urobilinogen Normal (NORMAL) 11/16/16 15:05 Ur Leukocyte Esterase Negative (NEGATIVE) 11/16/16 15:05 Urine RBC 0-2 /HPF (NEGATIVE) 11/16/16 15:05 Urine WBC 0-2 /HPF (NEGATIVE) 11/16/16 15:05 Ur Squamous Epith Cells Few /HPF (NEGATIVE) 11/16/16 15:05 Urine Bacteria Trace /HPF (NEGATIVE) 11/16/16 15:05 Ur Culture Indicated? No/not indicated 11/16/16 15:05 - Plan (1) Acute bronchitis Status: Acute Qualifiers: Bronchitis organism: B Plan: CONTINUE IV ATBX, RESP CONSULT. O2, REST, IV HYDRATION, REPEAT AM LABS (2) Generalized weakness Status: Acute Plan: Labs, IVFs (3) Hypertension Status: Acute Qualifiers: Hypertension type: H Plan: MONITOR (4) GERD (gastroesophageal reflux disease) Status: Acute Qualifiers: Esophagitis presence: E Plan: RESUME HOME MEDS, MONITOR (5) Anemia Status: Acute Qualifiers: Anemia type: iron deficiency Iron deficiency anemia type: I Vitamin B12 deficiency anemia type: V Folate deficiency anemia type: F Bone marrow failure anemia type: B Hemolytic anemia type: H Other causes of anemia: O Plan: REPEAT CBC Q AM, START ON FE REPLACEMENT THERAPY
[2016-11-21] MEDS: ZOCOR TAB 10 MG PO SCH (20:06)
[2016-11-21] MEDS: SINGULAIR TAB 10 MG PO SCH (20:06)
[2016-11-21] MEDS: FERROUS SULFATE PO SCH (20:16)
[2016-11-21] MEDS: ULTRAM PO PRN (20:16)
[2016-11-22 05:51] LABS: ALANINE AMINOTRANSFERASE 13 Units/L (12-78); ALBUMIN 2.6 g/dL (3.4-5.0); ALKALINE PHOSPHATASE 36 Units/L (46-116); ASPARTATE AMINO TRANSFERASE 20 Units/L (15-37); BLOOD UREA NITROGEN 13 mg/dL (7-18); CALCIUM 8.4 mg/dL (8.5-10.1); CARBON DIOXIDE 29.2 mmol/L (21-32); CHLORIDE 109 mmol/L (98-107); COR CA(FOR HYPOALB) 9.5 mg/dL (8.5-10.1); CREATININE 0.82 mg/dL (0.55-1.02); GLUCOSE 88 mg/dL (65-99); SODIUM 145 mmol/L (136-145); TOTAL PROTEIN 5.9 g/dL (6.4-8.2); eGFR BLACK RACES > 60 (>60); eGFR NON BLACK RACES > 60 (>60)
[2016-11-22 06:09] LABS: BASOPHILS # (AUTO) 0.1 X10^3/uL (0.0-0.1); EOSINOPHILS # (AUTO) 0.3 x10^3/uL (0.0-0.2); HEMOGLOBIN 9.3 g/dL (12.0-16.0); LYMPHOCYTES # (AUTO) 1.8 X10^3/uL (1.3-2.9); LYMPHOCYTES % (AUTO) 28.5 % (21.0-51.0); MEAN CORPUSCULAR HEMOGLOBIN 38.1 pg (27.0-34.0); MEAN CORPUSCULAR HGB CONC 33.3 g/dL (33.0-35.0); MEAN CORPUSCULAR VOLUME 114.4 fL (80.0-100.0); MEAN PLATELET VOLUME 7.9 fL (7.4-11.0); MONOCYTES # (AUTO) 0.3 x10^3/uL (0.3-0.8); MONOCYTES % (AUTO) 5.4 % (0.0-13.0); NEUTROPHILS # (AUTO) 3.8 x10^3/uL (2.2-4.8); NEUTROPHILS % (AUTO) 60.1 % (42.0-75.0); PLATELET COUNT 232 X10^3/uL (150.0-450.0); RED BLOOD COUNT 2.45 X10^6/uL (3.5-5.4); RED CELL DISTRIBUTION WIDTH 22.6 % (11.6-16.5); WHITE BLOOD COUNT 6.3 X10^3/uL (3.6-10.0)
[2016-11-22 07:10] LABS: PLATELET MORPHOLOGY COMMENT NORMAL (NORMAL)
[2016-11-22 07:11] LABS: ANISOCYTOSIS 2+
[2016-11-22] MEDS: PRILOSEC PO SCH (08:57)
[2016-11-22] MEDS: ATIVAN TAB 0.5 MG PO SCH (08:57)
[2016-11-22] MEDS: MOBIC TAB 15 MG PO SCH (08:57)
[2016-11-22] MEDS: FOLIC ACID TAB 1 MG PO SCH (08:57)
[2016-11-22] MEDS: CARAFATE PO SCH (08:58)
[2016-11-22] MEDS: CLARITIN PO SCH (08:58)
[2016-11-22] MEDS: LEVAQUIN TAB 500 MG PO SCH (08:58)
[2016-11-22] MEDS: NEURONTIN CAP 400 MG PO SCH (08:58)
[2016-11-22] MEDS: FERROUS SULFATE PO SCH (08:58)
[2016-11-22] MEDS: PLAVIX PO SCH (08:59)
[2016-11-22] MEDS: XOPENEX 1.25 MG/3 ML NEB SCH ×2 (09:06→13:29)
[2016-11-22 13:10] VITALS: BP 124/54
== END 2016-11-22 14:40 | DRG 153 ==
LOC: MED/SURG 20:37
PROVIDERS: ADMIT Internal Medicine; ATTEND Internal Medicine
DX: J06.9 Acute upper respiratory infection, unspecified (principal); J20.8 Acute bronchitis due to other specified organisms; R50.9 Fever, unspecified; K21.9 Gastro-esophageal reflux disease without esophagitis; I10 Essential (primary) hypertension; M13.89 Other specified arthritis, multiple sites; R53.1 Weakness; D64.89 Other specified anemias; E86.0 Dehydration; R26.89 Other abnormalities of gait and mobility
CPT/HCPCS: 36415; 71010; 80048; 80053; 81001; 82607; 82728; 82746; 83540; 84466; 85025; 87040; 94640; 94760; A4216; A4222; J0696; J2405